=== PATIENT | male | born 1955 | race Caucasian/White ===

== ENCOUNTER 2021-10-04 09:01 | Day surgery (SDC) | payer OTHER ==
[2021-10-01 09:52] VITALS: BMI 26.6
[~2021-10-04 09:01] MED LIST: LACTATED RINGERS SOLUTION 1,000 ML IV SCH; ONDANSETRON 4 MG/2 ML VIAL IVPUSH PRN
[2021-10-04] MEDS ORDERED: TROPICAMIDE 1% OPHTH SOLN 15 ML BOTTLE ONE (09:32)
[2021-10-04] MEDS ORDERED: KETOROLAC TROMETHAMINE 0.5% EYE DROP 1 DROP DROPS ONE (09:32)
[2021-10-04] MEDS ORDERED: MIDAZOLAM HCL 2 MG/2 ML SINGLE DOSE VIAL ONE (09:33)
[2021-10-04] MEDS ORDERED: CYCLOPENTOLATE HCL 1% OPHTH SOLN 2 ML BOTTLE ONE (09:33)
[2021-10-04] MEDS ORDERED: OFLOXACIN 0.3% OPHTHALMIC SOLUTION 5 ML BOTTLE ONE (09:33)
[2021-10-04] MEDS ORDERED: PHENYLEPHRINE 2.5% OPHTH SOLN 15 ML BOTTLE ONE (09:34)
[2021-10-04] MEDS: PHENYLEPHRINE 2.5% OPHTH SOLN 15 ML BOTTLE OD SCH ×3 (09:40→09:50)
[2021-10-04] MEDS: CYCLOPENTOLATE HCL 1% OPHTH SOLN 2 ML BOTTLE OD SCH ×3 (09:40→09:50)
[2021-10-04] MEDS: OFLOXACIN 0.3% OPHTHALMIC SOLUTION 5 ML BOTTLE OD SCH ×3 (09:40→09:50)
[2021-10-04] MEDS: TROPICAMIDE 1% OPHTH SOLN 15 ML BOTTLE OD SCH ×3 (09:40→09:50)
[2021-10-04] MEDS: KETOROLAC TROMETHAMINE 0.5% EYE DROP 1 DROP DROPS OD SCH ×3 (09:40→09:50)
[2021-10-04] MEDS ORDERED: ACETAMINOPHEN 325 MG TABLET (FP) PO PRN (10:56)
[2021-10-04 11:20] VITALS: BP 132/86; PULSE 76; RESP 16; TEMP 97.6
== END 2021-10-04 11:22 | disposition home or self-care (01) ==
LOC: FASU 09:01
PROVIDERS: ATTEND Ophthalmology
PROC: 08RJ3JZ Replacement of Right Lens with Synthetic Substitute, Percutaneous Approach (ICD-10-PCS; principal; 2021-10-04 10:20)
DX: H25.11 Age-related nuclear cataract, right eye (principal)
CPT/HCPCS: 66984; V2632

== ENCOUNTER 2023-07-18 03:47 | Day surgery (SDC) | payer OTHER ==
[2023-07-13 09:54] VITALS: BMI 25.8
[2023-07-18] MEDS ORDERED: FENTANYL CITRATE/PF 50 MCG/ML VIAL ONE ×2 (10:02→10:21)
[2023-07-18] MEDS ORDERED: MIDAZOLAM HCL 2 MG/2 ML SINGLE DOSE VIAL ONE (10:02)
[2023-07-18 10:50] VITALS: BP 124/71; PULSE 61; RESP 16; TEMP 97.5
== END 2023-07-18 11:45 | disposition home or self-care (01) ==
LOC: JASU-SURG 03:47
PROVIDERS: ATTEND Urology
PROC: 0TF4XZZ Fragmentation in Left Kidney Pelvis, External Approach (ICD-10-PCS; principal; 2023-07-18 09:30)
DX: N20.0 Calculus of kidney (principal)

== ENCOUNTER 2023-09-11 05:15 | Day surgery (SDC) | payer OTHER ==
[2023-09-08 12:13] VITALS: BMI 25.8
[2023-09-11 10:17] VITALS: RESP 18
[2023-09-11] MEDS ORDERED: MIDAZOLAM HCL 2 MG/2 ML SINGLE DOSE VIAL ONE (11:06)
[2023-09-11 13:07] VITALS: BP 143/75; PULSE 58; TEMP 98.4
== END 2023-09-11 12:30 | disposition home or self-care (01) ==
LOC: JASU-SURG 05:15
PROVIDERS: ATTEND Urology
PROC: 0TF3XZZ Fragmentation in Right Kidney Pelvis, External Approach (ICD-10-PCS; principal; 2023-09-11 11:11)
DX: N20.0 Calculus of kidney (principal)

== ENCOUNTER 2024-02-26 04:18 | Day surgery (SDC) | payer OTHER ==
[2024-02-19 16:31] VITALS: BMI 25.8
[2024-02-26 06:29] VITALS: RESP 18
[2024-02-26] MEDS ORDERED: MIDAZOLAM HCL 2 MG/2 ML SINGLE DOSE VIAL ONE (08:12)
[2024-02-26 09:57] VITALS: BP 131/80; PULSE 72; TEMP 97.6
== END 2024-02-26 10:25 | disposition home or self-care (01) ==
LOC: JASU-SURG 04:18
PROVIDERS: ATTEND Urology
PROC: 0TF4XZZ Fragmentation in Left Kidney Pelvis, External Approach (ICD-10-PCS; principal; 2024-02-26 08:00)
DX: N20.0 Calculus of kidney (principal)

== ENCOUNTER 2024-07-29 05:24 | Day surgery (SDC) | payer OTHER ==
[2024-07-25 17:25] VITALS: BMI 25.9
[2024-07-29 06:40] VITALS: RESP 18
[2024-07-29] MEDS ORDERED: KETOROLAC TROMETHAMINE 30 MG/1 ML VIAL ONE (07:41)
[2024-07-29] MEDS ORDERED: MIDAZOLAM HCL 2 MG/2 ML SINGLE DOSE VIAL ONE (07:41)
[2024-07-29] MEDS ORDERED: ONDANSETRON 4 MG/2 ML VIAL ONE (07:41)
[2024-07-29 09:25] VITALS: TEMP 97.9
[2024-07-29 10:29] VITALS: BP 140/79; PULSE 72
== END 2024-07-29 10:04 | disposition home or self-care (01) ==
LOC: JASU-SURG 05:24
PROVIDERS: ATTEND Urology
PROC: 0TF4XZZ Fragmentation in Left Kidney Pelvis, External Approach (ICD-10-PCS; principal; 2024-07-29 07:40)
DX: N20.0 Calculus of kidney (principal)